=== PATIENT | male | born 1960 | race African-American/Black ===

== ENCOUNTER 2017-04-02 22:43 | Emergency (ER) | payer MEDICAID ==
[~2017-04-02] VITALS: Ht 175.3 cm; Wt 78.2 kg
[2017-04-03] MEDS ORDERED: HYDROCODONE/ACETAMINOPHEN 5/325MG TABLET PO ONE (03:15)
[2017-04-03] MEDS ORDERED: AMOXICILLIN/POTASSIUM CLAVULANATE 875/125MG TAB PO ONE (03:15)
[2017-04-03] MEDS ORDERED: TETANUS, DIPHTHERIA, PERTUSSIS VAC/PF 0.5ML (>7YR OLD) IM ONE (03:45)
[2017-04-03 04:13] VITALS: BP 126/75
== END 2017-04-03 04:15 | disposition home or self-care (01) ==
LOC: ER 22:43
DX: S63.602A Unspecified sprain of left thumb, initial encounter (principal); R10.9 Unspecified abdominal pain; S80.211A Abrasion, right knee, initial encounter; K13.0 Diseases of lips; Y04.8XXA Assault by other bodily force, initial encounter; Y93.89 Activity, other specified; Y92.89 Other specified places as the place of occurrence of the external cause; Z23 Encounter for immunization
CPT/HCPCS: 29125; 29130; 73130; 90471; 90715; 99284